=== PATIENT | female | born 1985 | race Caucasian/White ===

== ENCOUNTER 2021-10-30 15:00 | Outpatient (RCR) | payer OTHER, SELFPAY | END 2021-11-15 08:10 | disposition home or self-care (01) | LOC: HO.PT 15:00 | PROVIDERS: PCP Pediatrics; Visit Provider Obstetrics & Gynecology | DX: N81.6 Rectocele (principal) | CPT/HCPCS: 97112; 97140; 97161 ==

== ENCOUNTER 2025-03-30 08:50 | Outpatient (REF) | payer OTHER, SELFPAY ==
[2025-03-30 12:00] LABS: MANUAL DIFF FLAG NO
[2025-03-30 12:13] LABS: Hematocrit 40.3 % (37.0-47.0); Hemoglobin 13.3 g/dl (12.0-16.0); Imm Gran Abs Auto 0.01 X10*3/uL (0.00-0.03); Imm Gran Pct Auto 0.3 % (0.0-0.4); Lymphocytes Absolute Auto 1.8 X10*3/uL (1.2-4.9); Mean Corpuscular HGB Conc 33.0 g/dl (31.0-35.0); Mean Corpuscular Hemoglobin 31.9 pg (27.0-33.0); Mean Corpuscular Volume 96.6 fL (80.0-98.0); NRBC Abs Auto 0.000 X10*3/uL (0.0-0.012); NRBC Pct Auto 0.0 /100WBC (0.0-0.2); Platelet Count 252 X10*3/uL (160-400); Red Blood Count 4.17 X10*6/uL (4.20-5.50); White Blood Count 3.7 X10*3/uL (4.8-10.8)
[2025-03-30 13:09] LABS: Ferritin 61 ng/mL (10-122); Thyroid Stimulating Hormone 1.05 uIU/mL (0.32-4.0)
[2025-04-04 15:43] LABS: FT4 by Equilib. Dialysis 1.4 ng/dL (0.9-2.2)
== END 2025-03-30 08:51 | disposition home or self-care (01) ==
LOC: HO.WFDLDS 08:50
PROVIDERS: Visit Provider Physician Assistant
DX: G44.52 New daily persistent headache (NDPH) (principal); R53.83 Other fatigue; R19.5 Other fecal abnormalities; R79.89 Other specified abnormal findings of blood chemistry
CPT/HCPCS: 36415; 82533; 82728; 84146; 84439; 84443; 85025

== ENCOUNTER → 2025-03-31 13:13 | Outpatient (AMB) | payer OTHER, SELFPAY ==
--- NOTE | 2025-03-31 13:15 | A.OFFVIS_ITS ---
Intake Visit Reasons: labs and fatigue Clinical Safety Manager Required: No Allergies No Known Allergies Allergy (Verified 03/31/25 13:25) Is last menstrual period known: No (IUD) Post menopausal: No Patient : No HPI HPI labs and fatigue: Details: Patient is a 40-year-old female who presents today to establish care. She has recently changing practices from [facility] to here. She recently saw her PCP with concerns of new onset fatigue, headaches and just generally feeling unwell. She states about a month ago she started noticing that she was waking up feeling tired despite sleeping through the night. She thought initially she was maybe coming down with something but it has persisted for the last month. She says that she eats very healthy, she exercises every day but the last month has been unable to do much. She says that she is exhausted and randomly throughout the day she is developing a headache. She says it feels like a pressure on the top of her head. Sometimes her vision feels a little blurry/tired with it. She denies any fever, chills, swollen lymph nodes, night sweats, snoring, weight changes, appetite changes, nausea or vomiting. No numbness, tingling or weakness. She states that she feels like she wants to sleep all the time and this is just not like her. She has noticed an increase in constipation symptoms. No chest pain or shortness on breath. No palpitations. PCP did rule out infectious etiology She did not appear to be iron deficient. Her B12 was low end normal at 260. CMP noted to have slightly low alk-phos otherwise WNL, TSH low end normal She was noted to have a low T3 and low T4 Free T4: 0.7 T3 total 0.6 TTE resident uptake: Elevated at 37 TSH: 1 Family history: Mother hypothyroidism, sister had ovarian cancer Telehealth Telehealth Telehealth Platform: Telephone Location of provider rendering services: practice address Location of patient: address on file Patient Identification confirmed using: Name, : Yes Telehealth method: voice only Patient verbally consented to treatment: Yes Patient verbally consented to billing insurance company: Yes Patient informed of any privacy concerns related to visit: Yes Minutes spent on Phone/Video with Pt.: 18 Results Reviewed Results Reviewed: Laboratory Tests 03/30/25 03/30/25 08:52 08:55 WBC 3.7 L RBC 4.17 L Hgb 13.3 Hct 40.3 Plt Count 252 Ferritin 61 TSH 1.05 Prolactin 4.3 Random Cortisol 7.5 Assessment & Plan Assessment & Plan (1) New daily persistent headache: Code(s): G44.52 - New daily persistent headache (NDPH) Category: Medical Plan: MRI ordered with pituitary protocol (2) Low serum cortisol level: Code(s): R79.89 - Other specified abnormal findings of blood chemistry Category: Medical Plan: As above. I will refer to endocrinology. (3) Low serum triiodothyronine (T3): Code(s): R79.89 - Other specified abnormal findings of blood chemistry Category: Medical Plan: As above (4) Low T4: Code(s): R79.89 - Other specified abnormal findings of blood chemistry Category: Medical Plan: As above (5) Fatigue: Code(s): R53.83 - Other fatigue Category: Medical Plan: We will workup with endocrinology and MRI. We will follow up pending test results. Patient understands and agrees with the plan. Orders: Referrals Endocrinology Referral R79.89 - Other specified abnormal findings of blood chemistry Coding Level of Care Code Tele New Pt Level 2 (61518) Diagnoses New daily persistent headache G44.52 Low serum cortisol level R79.89 Low serum triiodothyronine (T3) R79.89 Low T4 R79.89 Fatigue R53.83
--- OUTSIDE RECORDS SUMMARY | 2025-04-01 01:06 | XMS_ITS | Encounter Summary ---
Author Organization [facility] Address [address] [place] [address] [place] [phone] Phone Care Team Providers Care Event Marketing Manager Name Role Phone Cami Barnard Primary Care Provider [phone] [phone] Encounter Details Date Type Department Care Team (Late st Contact Info) Description 09/12/2023 Procedure Pass [facility] Endoscopy Admitting Dept Virtual Department [address] [place] [address] Social History Tobacco Use Types Packs/Day Years Used Date Smoking Tobacco: Never Smokeless Tobacco: Never Alcohol Use Standard Drinks/Week Comments Yes 2 (1 standard drink = 0.6 oz pur e alcohol) 2-3 drinks per week Education Answer Date Recorded Are you interested in more education? Not on judy e 09/07/2022 Are you concerned about learning? Not on file 09/07/2022 No 09/07/2022 No 09/07/2022 Digital Access Answer Date Recorded No 10/05/2022 No 10/05/2022 Reliable internet access at home? Not on file 10/05/2022 Device with a working camera? Not on file Intimate Partner Violence Answer Date R ecorded Are you denied basic needs s uch as food, clothing, or medical care? No 09/12/2023 In the past 12 months have y ou been in a relationship with a person who hurts, threatens, or tries to control you? No 09/12/2023 Are you denied basic needs s uch as food, clothing, or medical care? No 09/12/2023 In the past 12 months have y ou been in a relationship with a person who hurts, threatens, or tries to control you? No 09/12/2023 Comments No Sex and Gender Information Value Date Recorded Sex Assigned at Not on file Legal Sex Female 9:10 PM EDT Gender Identity Not on file Sexual Orientation Not on file documented as of this encounter Plan of Treatment Not on file documented as of this encounter Visit Diagnoses Not on filedocumented in this encounter Care Teams Event Marketing Manager Relationship Specialty Start Date End Date Cami Barnard PA [address] [place] [phone] PCP - General Physician Acid Purification Equipment Operator 08/08/23 documented as of this encounter Additional Source Comments The information contained in this document represents components of the legal health record. It is not the complete legal health record.[facility]
--- OUTSIDE RECORDS SUMMARY | 2025-04-01 01:07 | XMS_ITS | Clinical Summary ---
Author Organization [facility] Address [address] [place] [address] Care Team Providers Care Soil Biology Teacher Name Role Phone Unavailable Primary Care Provider Unavailabl e Source Comments Please note that some or all of the patient's information could have additional privacy protections. State laws allow health care providers to render certain types of treatment to minors without parental consent. Please do not assume that this information can be shared solely by obtaining just the consent of the patient's parent/guardian. Please determine if all or part of the patient's care was rendered without parent/guardian involvement. And, if so, obtain the minor's consent prior to disclosure.[facility] Social History Tobacco Use Types Packs/Day Years Used Date Smoking Tobacco: Never Assessed Comments Unknown Sex and Gender Information Value Date Recorded Sex Assigned at Not on file Legal Sex Female 7:36 PM EST Gender Identity Not on file Sexual Orientation Not on file Plan of Treatment Health Maintenance Due Date Last Done Comments DTaP/TDAP/TD VACCINES (1 - Tdap) 1994 ADOLESCENT HIV SCREENING 02/14/2000 COVID-19 Vaccine (2023-2 5 season) 2025 INFLUENZA (#1) 2025 NIRSEVIMAB VACCINES UNDER 8 MONTHS Aged Out No longer eligible based on patient's age to complete this topic Insurance [employer]ARD
--- OUTSIDE RECORDS SUMMARY | 2025-04-01 01:07 | XMS_ITS | Clinical Summary ---
Author Organization [facility] Address [address] [facility] [address] [place] [phone] Phone Care Team Providers Care Drawing Operator Name Role Phone Cami Barnard Primary Care Provider [phone] [phone] Allergies Active Allergy Reactions Criticality Noted Date Comments Animal Dander 05/26/2013 Other reaction(s): hives,swelling House Dust Mite 05/26/2013 Other reaction(s): hives, swelling Other 05/26/2013 Other reaction(s): hives,swelling Tree And Shrub Pollen 05/26/2013 Other reaction(s): hives,swelling Medications VENTOLIN HFA 90 mcg/actuation inhaler Inhale 2 puffs into the lungs every 4 (four) hours as needed for wheezing. 1 Inhaler 1 0 Active Additional Information Patient not taking.Reported on 09/11/2023 levonorgestreL (LILETTA) 20.4 mcg/24 hrs (8 yrs) 52 mg IUD 1 each by Intrauterine route. Active Active Problems Problem Noted Date Diagnosed Date Acne 05/17/2019 Mild intermittent asthma 05/12/2014 Immunizations Immunization Administration Dates Next Due COVID-19 (Pre-03/04) Moderna Vaccine, mRNA, PF 0 06/17/2020 Social History Tobacco Use Types Packs/Day Years Used Date Smoking Tobacco: Never Smokeless Tobacco: Never Tobacco Cessation:Counseling Given: Not Answered Alcohol Use Standard Drinks/Week Comments Yes 2 [...] on file Sexual Orientation Not on file Last Filed Vital Signs Vital Sign Reading Time Taken Comments Blood Pressure 110/68 09/12/2023 12:45 PM EDT Pulse 57 09/12/2023 12:45 PM EDT Temperature 36.6 C (97.9 F) 09/12/2023 12:45 PM EDT Respiratory Rate 18 09/12/2023 12:45 PM EDT Oxygen Saturation 100% 09/12/2023 12:45 PM EDT Inhaled Oxygen Concentration - - Weight 63.5 kg (140 lb) 09/11/2023 12:48 PM EDT Height 170.2 cm (5' 7 ) 09/11/2023 12:48 PM EDT Body Mass Index 21.93 09/11/2023 12:48 PM EDT Plan of Treatment Health Maintenance Due Date Last Done Comments DEPRESSION SCREENING 1999 HEPATITIS C SCREENING 2005 HIV ONE-TIME SCREENING (18-65 YEARS) 2005 PNEUMOCOCCAL VACCINES (0-49 years) (1 of 2 - PCV) 2006 PAP SMEAR 02/14/2008 INFLUENZA VACCINE (#1) 2024 2023, 2019 COVID-19 VACCINE ( season) 2025 06/17/2020 Adult Td,Tdap Booster 10/21/2029 10/22/2019 , 10/04/2016, 09/28/2014, Additional history exists HIB VACCINES Completed 10/12/1988 MENINGOCOCCAL VACCINES (ACWY) Aged Out 12/09/2006 No longer eligible based on patient's age to complete this topic SMOKING STATUS SCREENING (Once After 26 Yrs) Completed 09/12/2023 HEPATITIS A VACCINES Aged Out No long er eligible based on patient's age to complete this topic MENINGOCOCCAL VACCINES (B) Aged Out N o longer eligible based on patient's age to complete this topic Medical Devices Not on file Insurance HMO HMO HMO HMO HMO HMO O HMO HMO Care Teams Drawing Operator Relationship Specialty Start Date End Date Cami Barnard PA [address] [place] [phone] PCP - General Physician Bundle Cutter 08/08/23 Additional Source Comments The information contained in this document represents components of the legal health record. It is not the complete legal health record.[facility]
== END ==
LOC: HO.HMCFM 13:13
PROVIDERS: PCP Pediatrics; Visit Provider Physician Assistant
DX: G44.52 New daily persistent headache (NDPH) (principal); R79.89 Other specified abnormal findings of blood chemistry; R53.83 Other fatigue

== ENCOUNTER → 2025-04-14 14:54 | Outpatient (BNV) | payer OTHER, SELFPAY | PROVIDERS: PCP Physician Assistant; Visit Provider Radiology Body Imaging | DX: G44.52 New daily persistent headache (NDPH) (principal) | CPT/HCPCS: 70553 ==

== ENCOUNTER 2025-04-14 14:55 | Outpatient (REF) | payer OTHER, SELFPAY ==
--- NOTE | ~2025-04-14 | MR_ITS ---
EXAMINATION: MR BRAIN WITHOUT THEN WITH IV CONTRAST CLINICAL INFORMATION: G44.52 - New daily persistent headache (NDPH)low T4, fatigue, low ser COMPARISON: None available. TECHNIQUE: Multiplanar, multisequence MRI of the brain was obtained before and after the intravenous administration of 3 cc of contrast gadolinium Gadavist. FINDINGS: Sella: Pituitary gland is normal in size, with flat superior surface and demonstrates homogeneous enhancement. No discrete mass identified. Infundibulum is midline. No mass effect on the optic nerves or optic chiasm. Cavernous sinuses appear normal. Brain parenchyma: No evidence of acute infarct, large parenchymal hemorrhage or abnormal parenchymal enhancement. At least one small focus of FLAIR hyperintensity in the white matter of the right frontal lobe (8:14/28), of doubtful clinical significance. There is a 0.4 cm FLAIR hyperintense lesion in the anterior aspect of the right cerebral peduncle (8:17/28), which appears to be only partially seen on T2 sequence (9:18/28); there is no restricted diffusion or associated postcontrast enhancement. Ventricles/extra-axial spaces: No hydrocephalus. No extra-axial fluid collection. Extracranial structures: Arterial flow voids in the skull base are preserved. Paranasal sinuses and mastoid air cells are clear. MR/MR head/brain wo/w con IMPRESSION: 1. No discrete pituitary mass. 2. Nonenhancing T2/FLAIR hyperintense lesion in right cerebral peduncle. Nonspecific finding, likely chronic. If no priors are available for comparison, and no clinical correlate, consider follow-up with brain MRI with thin slices pre and post gadolinium contrast. Electronically signed by: Chuy Chowdhury MD 04/14/2025 05:[address] [facility]
--- OUTSIDE RECORDS SUMMARY | 2025-04-14 17:54 | XMS_ITS | Encounter Summary ---
Author Organization [facility] Address [address] [place] [address] [place] [phone] Phone Care Team Providers Care Electric Stop Installer Name Role Phone Cami Barnard Primary Care Provider [phone] [phone] Encounter Details Date Type Department Care Team (Late st Contact Info) Description 09/12/2023 Procedure Pass [facility] Endoscopy Admitting Dept Virtual Department [address] [place] [address] Social History Tobacco Use Types Packs/Day Years [...] on filedocumented in this encounter Care Teams Electric Stop Installer Relationship Specialty Start Date End Date Cami Barnard PA [address] [place] [phone] PCP - General Physician Revenue Liaison 08/08/23 documented as of this encounter Additional Source Comments The information contained in this document represents components of the legal health record. It is not the complete legal health record.[facility]
--- OUTSIDE RECORDS SUMMARY | 2025-04-14 17:54 | XMS_ITS | Clinical Summary ---
Author Organization [facility] Address [address] [facility] [address] [place] [phone] Phone Care Team Providers Care Industrial Aerial Installer Name Role Phone Cami Barnard Primary Care Provider [phone] [phone] Allergies Active Allergy Reactions Criticality Noted Date [...] 10/22/2019 , 10/04/2016, 09/28/2014, Additional history exists COLONOSCOPY 09/11/2032 09/12/2023 COLORECTAL CANCER SCREENING 09/11/2032 HIB VACCINES Completed 10/12/1988 MENINGOCOCCAL VACCINES (ACWY) [...] this topic Medical Devices Not on file Procedures Procedure Name Priority Date/Time Associated Diagnosis Comments ENDOSCOPY, COLON 09/12/2023 11:2 5 AM EDT from Last 3 Months or Most Recently Relevant to Health Maintenance Results * ENDOSCOPY, COLON (09/12/2023 11:25 AM EDT) Narrative Transcriptions Robbin Antonio MD - 09/12/2023 11:25 AM EDT [facility] Patient Name: Tom Romero Attending MD:: ROBBIN ANTONIO MD, , Procedure Date: 09/12/2023 11:25 AM Date of : 1985 Age: 38 Admit Type: Outpatient Gender: Female Room: [facility] Referring MD: Cami Barnard Exam Type: Colonoscopy Indications: Hematochezia Medications: Monitored Anesthesia Care Procedure: Informed consent was obtained from the patientafter discussion of the indications, limitations, alternatives, benefits, and risks of the procedure. Risks specifically discussed include but are not limited to medication reactions, missed lesions, bleeding, perforation, or the need for emergent surgery. Throughout the procedure, the patient's blood pressure, pulse, end-tidal CO2, and oxygensaturations were monitored continuously. The Olympus pediatric variable colonoscopePCF-[id number] #4 was introduced through the anus and advanced tothe cecum, identified by appendiceal orifice andileocecal valve. The colonoscopy was performed without difficulty. The patient tolerated the procedurewell. The quality of the bowel preparation was excellent. The quality of the bowel preparation was evaluated using the BBPS ([place] Bowel Preparation Scale)with scores of: Right Colon = 3, Transverse Colon = 3and Left Colon = 3 (entire mucosa seen well with no residual staining, small fragments of stool oropaque liquid). The total BBPS score equals 9. Anatomical landmarks were photographed. Complications: No immediate complications. Estimated blood loss:None. Findings: The perianal and digital rectal examinations were normal. The colon (entire examined portion) was mildly tortuous. Advancing the scope required using manual pressure. Internal hemorrhoids were found duringretroflexion. The hemorrhoids were mild. The exam was otherwise normal throughout theexamined colon. Impression: - Tortuous colon. - Internal hemorrhoids. - No specimens collected. Recommendation: - Discharge patient to home. - Repeat colonoscopy at age 47 for screeningpurposes. ROBBIN ANTONIO MD, 09/12/2023 11:48:11 AM This report has been signed electronically. Number of Addenda: 0 Note Initiated On: 09/12/2023 11:25 AM Procedure Code(s): --- Professional --- 33842, Colonoscopy, flexible; diagnostic, including collection of specimen(s) by brushing or washing, when performed (separateprocedure) --- Technical --- 52657, Colonoscopy, flexible; diagnostic, including collection of specimen(s) by brushing or washing, when performed (separateprocedure) Diagnosis Code(s): --- Professional --- K64.8, Other hemorrhoids K92.1, Melena (includes Hematochezia) Q43.8, Other specified congenital malformations of intestine --- Technical --- K64.8, Other hemorrhoids K92.1, Melena (includes Hematochezia) Q43.8, Other specified congenital malformations of intestine CPT copyright 2021 [employer]. All rights reserved. The codes documented in this report are preliminary and upon raw stock machine feeder reviewmay be revised to meet current compliance requirements. Procedure Date: 09/12/2023 11:25:[address] [place] [phone] Cami VALERO GI PROCEDURE ORDERABLES F inal Result from Last 3 Months or Most Recently Relevant to Health Maintenance [place] [address] [place] [address] [facility] O HMO HMO HMO Care Teams Industrial Aerial Installer Relationship Specialty Start Date End Date Cami Barnard PA [address] [place] [phone] PCP - General Physician Cannon Crewmember 08/08/23 Additional Source Comments The information contained in this document represents components of the legal health record. It is not the complete legal health record.[facility]
--- OUTSIDE RECORDS SUMMARY | 2025-04-14 17:54 | XMS_ITS | Clinical Summary ---
Author Organization [facility] Address [address] [place] [address] Care Team Providers Care Public Health Nutritionist Name Role Phone Unavailable Primary Care Provider [...] so, obtain the minor's consent prior to disclosure.[facility] Social History Tobacco Use Types Packs/Day [...]
== END 2025-04-14 14:56 | disposition home or self-care (01) ==
LOC: HO.MRI 14:55
PROVIDERS: PCP Physician Assistant; Visit Provider Physician Assistant
DX: G44.52 New daily persistent headache (NDPH) (principal); R79.89 Other specified abnormal findings of blood chemistry; R53.83 Other fatigue
CPT/HCPCS: 70553; A9585